=== PATIENT | female | born 1970 | race African-American/Black ===

== ENCOUNTER 2019-11-28 10:28 | Emergency (ER) | payer BC ==
--- NOTE | 2019-11-28 11:07 | ER Document Report ---
ED Medical Screen (RME) - General Chief Complaint: Cough Stated Complaint: COUGHING UP BLOOD Time Seen by Provider: 11/28/19 10:59 Mode of Arrival: Ambulatory Information source: Patient Notes: 49-year-old female presents to ED with complaint of coughing for the last week. She states that she woke up and coughed up more blood than usual. She states she been coughing up blood for about a week. She states the right side of her throat is sore eye 4-5. States she is scheduled for a biopsy of the thyroid on the . She states she has no energy but this is normal for her. She states she has a history of hypothyroid rheumatoid arthritis asthma vertigo. She has had carpal tunnel syndrome cholecystectomy bilateral tubal ligation back surgery tonsillectomy and lymph nodes removed from her right axilla. I have greeted and performed a rapid initial assessment of this patient. A comprehensive ED assessment and evaluation of the patient, analysis of test results and completion of medical decision making process will be conducted by an additional ED providers. Physical Exam - Vital signs Vitals: Temp Pulse Resp BP Pulse Ox 98.0 F 71 18 135/78 H 100 11/28/19 10:36 11/28/19 10:36 11/28/19 10:36 11/28/19 10:36 11/28/19 10:36 Course - Vital Signs Vital signs: Temp Pulse Resp BP Pulse Ox 98.0 F 71 18 135/78 H 100 11/28/19 10:36 11/28/19 10:36 11/28/19 10:36 11/28/19 10:36 11/28/19 10:36
--- NOTE | 2019-11-28 11:52 | RADIOLOGY REPORT (SQ) ---
EXAM DESCRIPTION: CHEST SINGLE VIEW IMAGES COMPLETED DATE/TIME: 11/28/2019 11:42 am REASON FOR STUDY: cough COMPARISON: None. EXAM PARAMETERS: NUMBER OF VIEWS: One view. TECHNIQUE: Single frontal radiographic view of the chest acquired. RADIATION DOSE: NA LIMITATIONS: None. FINDINGS: LUNGS AND PLEURA: No opacities, masses or pneumothorax. No pleural effusion. MEDIASTINUM AND HILAR STRUCTURES: No masses. Contour normal. HEART AND VASCULAR STRUCTURES: Heart normal in size. Normal vasculature. BONES: No acute findings. HARDWARE: Right axillary surgical clips. OTHER: No other significant finding. IMPRESSION: No focal airspace disease or other evidence of acute intrathoracic process. TECHNICAL DOCUMENTATION: JOB ID: [id number] 2010 [email or web address]- All Rights Reserved Reading location - IP/workstation name: [email or web address]
[2019-11-28 11:53] LABS: ABSOLUTE BASOPHILS # (AUTO) 0.1 10^3/uL (0.0-0.2); ABSOLUTE EOSINOPHILS # (AUTO) 0.5 10^3/uL (0.0-0.6); ABSOLUTE MONOCYTES (AUTO) 0.3 10^3/uL (0.1-1.4); ABSOLUTE NEUT (AUTO) 2.5 10^3/uL (1.7-8.2); EOSINOPHILS % (AUTO) 9.5 % (0-6); HEMATOCRIT 36.7 % (36.0-47.0); HEMOGLOBIN 12.9 g/dL (12.0-15.5); LYMPHOCYTES % (AUTO) 37.8 % (13-45); MEAN CORPUSCULAR VOLUME 92 fl (80-97); MONOCYTES % (AUTO) 5.3 % (3-13); PLATELET COUNT 363 10^3/uL (150-450); RED BLOOD COUNT 4.01 10^6/uL (3.72-5.28); RED CELL DISTRIBUTION WIDTH 13.5 % (11.5-14.0); SEGMENTED NEUTROPHILS % (AUTO) 46.4 % (42-78); TOTAL CELLS COUNTED % (AUTO) 100 %; WHITE BLOOD COUNT 5.4 10^3/uL (4.0-10.5)
[2019-11-28 12:12] LABS: ALBUMIN 3.9 g/dL (3.5-5.0); ALKALINE PHOSPHATASE 105 U/L (38-126); ANION GAP 9 (5-19); ASPARTATE AMINO TRANSFERASE 43 U/L (14-36); BILIRUBIN,DIRECT 0.2 mg/dL (0.0-0.4); BILIRUBIN,TOTAL 1.1 mg/dL (0.2-1.3); BLOOD UREA NITROGEN 12 mg/dL (7-20); CALCIUM 9.4 mg/dL (8.4-10.2); CARBON DIOXIDE 24 mmol/L (22-30); CHLORIDE 107 mmol/L (98-107); GLUCOSE 92 mg/dL (75-110); TOTAL PROTEIN 7.7 g/dL (6.3-8.2)
[2019-11-28 12:30] LABS: FREE T3 3.55 pg/mL (2.77-5.27); FREE T4 (FREE THYROXINE) 0.93 ng/dL (0.78-2.19)
[2019-11-28 12:42] LABS: APPEARANCE,URINE CLOUDY; BILIRUBIN,URINE NEGATIVE (NEGATIVE); COLOR,URINE YELLOW; GLUCOSE, URINE NEGATIVE (NEGATIVE); KETONES,URINE NEGATIVE (NEGATIVE); LEUKOCYTE ESTERASE,URINE TRACE (NEGATIVE); NITRITE,URINE NEGATIVE (NEGATIVE); PROTEIN,URINE 30 mg/dL (NEGATIVE); URINE SPECIFIC GRAVITY 1.013; UROBILINOGEN,URINE NEGATIVE mg/dL (<2.0)
[2019-11-28 12:43] LABS: THYROID STIMULATING HORMONE 5.28 uIU/mL (0.47-4.68)
--- NOTE | 2019-11-28 13:59 | ER Document Report ---
ED General - General Chief Complaint: Cough Stated Complaint: COUGHING UP BLOOD Time Seen by Provider: 11/28/19 10:59 Mode of Arrival: Ambulatory Information source: Patient - HPI Notes: Patient presents complaining of some right throat pain and coughing up blood this morning. She states she has a history of thyroid disease and is scheduled for a thyroid biopsy later this week. She states when she coughed up blood this morning she called her primary doctor who informed her to come to the hospital. She states that she only coughed up the blood in the morning and has been for about 1 week. She states that she also is having some right lateral neck pain mainly when she swallows. It is worse with swallowing better without swallowing. The pain stays in the right neck and has no significant radiation. It is a sharp and stabbing sensation. Is moderate in intensity. No cough or congestion. - Related Data Allergies/Adverse Reactions: codeine Allergy (Verified 11/28/19 11:08) ondansetron [From Zofran] Allergy (Verified 11/28/19 11:08) Home Medications: Synthroid Past Medical History - General Information source: Patient - Social History Smoking Status: Never Smoker Chew tobacco use (# tins/day): No Frequency of alcohol use: None Drug Abuse: None Family History: Reviewed & Not Pertinent Review of Systems - Review of Systems Constitutional: denies: Chills, Fever Cardiovascular: denies: Chest pain, Palpitations Respiratory: Hemoptysis. denies: Short of breath -: Yes All other systems reviewed and negative Physical Exam - Vital signs Vitals: Temp Pulse Resp BP Pulse Ox 98.0 F 71 18 135/78 H 100 11/28/19 10:36 11/28/19 10:36 11/28/19 10:36 11/28/19 10:36 11/28/19 10:36 Interpretation: Normal - General General appearance: Appears well, Alert - HEENT Head: Normocephalic, Atraumatic Eyes: Normal Pupils: PERRL Pharynx: Normal Neck: Other - Patient has a minimally tender area of swelling on the right lateral anterior neck consistent with possible enlarged thyroid. - Respiratory Respiratory status: No respiratory distress Chest status: Nontender Breath sounds: Normal Chest palpation: Normal - Cardiovascular Rhythm: Regular Heart sounds: Normal auscultation Murmur: No - Abdominal Inspection: Normal Distension: No distension Bowel sounds: Normal Tenderness: Nontender Organomegaly: No organomegaly - Back Back: Normal, Nontender - Extremities General upper extremity: Normal inspection, Nontender, Normal color, Normal ROM, Normal temperature General lower extremity: Normal inspection, Nontender, Normal color, Normal ROM, Normal temperature, Normal weight bearing. No: Anna's sign - Neurological Neuro grossly intact: Yes Cognition: Normal Orientation: AAOx4 [place] Coma Scale Eye Opening: Spontaneous Hany Coma Scale Verbal: Oriented [place] Coma Scale Motor: Obeys Commands [place] Coma Scale Total: 15 Speech: Normal Motor strength normal: LUE, RUE, LLE, RLE Sensory: Normal - Psychological Associated symptoms: Normal affect, Normal mood - Skin Skin Temperature: Warm Skin Moisture: Dry Skin Color: Normal Course - Re-evaluation Re-evalutation: 11/28/19 13:58 Patient comes in with a history of morning hemoptysis. Laboratories are stable. Exam is stable. Vital signs are unremarkable. Imaging shows nothing that wou ld explain the hemoptysis. I personally discussed the CT scans with the radiologist. He recommends further work-up of the thyroid as scheduled as he states the CT does not reveal any significant findings in regards to the thyroid. He does states that there is some area around the right pectoral m uscle that is concerning and that needs outpatient follow-up to rule out carcinoma. This was relayed to the patient and she was instructed to discuss this with her primary care physician and that a mammogram probably would not be adequate but that she would need possibly some type of tissue biopsy but ultimately to discuss it with her primary care doctor. - Vital Signs Vital signs: Temp Pulse Resp BP Pulse Ox 98.0 F 71 18 135/78 H 100 11/28/19 10:36 11/28/19 10:36 11/28/19 10:36 11/28/19 10:36 11/28/19 10:36 - Laboratory Result Diagrams: 11/28/19 11:20 11/28/19 11:20 Laboratory results interpreted by me: 11/28/19 11/28/19 11/28/19 11:20 11:20 11:20 Eos % (Auto) 9.5 H Est GFR ( Amer) 58 L Est GFR (MDRD) Non-Af 48 L AST 43 H TSH 5.28 H Urine Protein Urine Blood Ur Leukocyte Esterase 11/28/19 12:07 Eos % (Auto) Est GFR ( Amer) Est GFR (MDRD) Non-Af AST TSH Urine Protein 30 H Urine Blood LARGE H Ur Leukocyte Esterase TRACE H - Diagnostic Test Radiology reviewed: Image reviewed, Reports reviewed Discharge - Discharge Clinical Impression: Hemoptysis Condition: Stable Disposition: HOME, SELF-CARE Additional Instructions: Please discuss further work-up of your thyroid with your primary care physician as soon as possible. Please discuss further work-up of the abnormality seen on CAT scan concerning your right chest muscle, called your pectoralis, as soon as possible. A mammogram will probably not be a helpful study. You should discuss biopsy or some type of further imaging with your primary concerning this lesion. Forms: Return to Work
--- NOTE | 2019-11-28 14:00 | RADIOLOGY REPORT (SQ) ---
EXAM DESCRIPTION: CTA CHEST IMAGES COMPLETED DATE/TIME: 11/28/2019 1:38 pm REASON FOR STUDY: hemop COMPARISON: None. TECHNIQUE: CT scan of the chest performed using helical scanning technique with dynamic intravenous contrast injection. Images reviewed with lung, soft tissue and bone windows. Reconstructed coronal and sagittal MPR images reviewed. Additional 3 dimensional post-processing performed to develop Maximal Intensity Projection images ([place] P). All images stored on PACS. All CT scanners at this facility use dose modulation, iterative reconstruction, and/or weight based d osing when appropriate to reduce radiation dose to as low as reasonably achievable (ALARA). [facility]: Dose Right [facility]: CareDose [facility]: Dose Right [facility]: Teradose 4D [facility]: Thrupoint CONTRAST TYPE AND DOSE: Omnipaque 350 75 cc Contrast bolus optimized for the aorta. Nondiagnostic for the pulmonary arteries. RENAL FUNCTION: Creatinine 1.2 RADIATION DOSE: CT Rad equipment meets quality standard of care and radiation dose reduction techniq ues were employed. CTDIvol: 3.2 - 29.8 mGy. DLP: 2348 mGy-cm. . LIMITATIONS: None. FINDINGS: LUNGS AND PLEURA: No masses, infiltrates, or pneumothorax. No pleural effusions or pleura l calcifications. AORTA AND GREAT VESSELS: No aneurysm. No dissection. HEART: Cardiomegaly. No significant pericardial effusion. No significant coronary artery calcificati ons. PULMONARY ARTERIES: Evaluation for pulmonary artery is limited secondary to bolus timing. No evidenc e of a right heart strain. HILAR AND MEDIASTINAL STRUCTURES: No identified masses or abnormal nodes. HARDWARE: Right axillary surgical clips. UPPER ABDOMEN: No acute findings. Prior cholecystectomy. Left upper pole renal cyst. THYROID AND OTHER SOFT TISSUES: Right axillary surgical clips. There are enlarged subpectoral lymph nodes, largest measuring 1.9 cm in short axis (series 3, image 30). Heterogeneous thyroid, partially evaluated. BONES: No acute or significant finding. 3D MIPS: Confirm above findings. OTHER: No other significant finding. IMPRESSION: 1. Nondiagnostic exam for evaluation of pulmonary embolism secondary to contrast timing . No evidence of right heart strain. No other evidence of acute intrathoracic process. 2. Right axillary surgical clips with enlarged right subpectoral lymph nodes, largest measuring 1.9 cm in short axis. Findings suspicious for malignancy. Correlation with priors and further workup wa rranted. 3. Heterogeneous thyroid, partially evaluated. Ultrasound could be considered for further character ization if not previously performed. Findings discussed with Dr. Chowdhury At 1349 hours on 11/28/2019 COMMENT: Quality ID # 436: Final reports with documentation of one or more dose reduction techniques (e.g., Automated exposure control, adjustment of the mA and/or kV according to patient size, use of iterative reconstruction technique) TECHNICAL DOCUMENTATION: JOB ID: [id number] 2010 [employer]- All Rights Reserved Reading location - IP/workstation name: [email or web address]
--- NOTE | 2019-11-28 14:12 | RADIOLOGY REPORT (SQ) ---
EXAM DESCRIPTION: CT SOFT TISSUE NECK WITH IMAGES COMPLETED DATE/TIME: 11/28/2019 1:38 pm REASON FOR STUDY: neck mass COMPARISON: None. TECHNIQUE: Post IV contrasted scanning from skull base through lung apices with review of bone, soft tissue and lung windows. Reconstructed coronal and sagittal MPR images reviewed. All images stored on PACS. All CT scanners at this facility use dose modulation, iterative reconstruction, and/or weight based d osing when appropriate to reduce radiation dose to as low as reasonably achievable (ALARA). [facility]: Dose Right [facility]: CareDose [facility]: Dose Right [facility]: Teradose 4D [facility]: [employer] CONTRAST TYPE AND DOSE: contrast/concentration: Isovue 350.00 mmol/ml; Total Contrast Delivered: 74. 9 ml; Total Saline Delivered: 70.0 ml RENAL FUNCTION: BUN 12; creatinine 1.2 RADIATION DOSE: . LIMITATIONS: Body habitus and patient motion FINDINGS: SKULL BASE: Intact. MAJOR SALIVARY GLANDS: No solid or cystic masses. No inflammatory changes. LYMPHADENOPATHY: No adenopathy. MUCOSAL MASSES OR ASYMMETRY: No mucosal masses or asymmetry. LARYNX/CORDS: Not adequately evaluated due to patient motion artifact obscuring the structures. VASCULAR STRUCTURES: The major vessels are patent. LUNG APICES: Clear. BONES: Intact. Disc degenerative changes are seen at the C5/6 level. THYROID: Grossly normal. PARANASAL SINUSES: Clear. OTHER: No other significant finding. IMPRESSION: Limited exam. The larynx is not adequately evaluated due to patient motion artifact. N o discrete cervical mass. TECHNICAL DOCUMENTATION: JOB ID: [id number] Quality ID # [id number]: Final reports with documentation of one or more dose reduction techniques (e.g., Au tomated exposure control, adjustment of the mA and/or kV according to patient size, use of iterative reconstruction technique) 2010 [employer]- All Rights Reserved Reading location - IP/workstation name: [email or web address]
[2019-11-28 14:49] VITALS: BP 110/80
== END 2019-11-28 14:35 | disposition home or self-care (01) ==
LOC: ER 10:28
DX: R04.2 Hemoptysis (principal); R07.0 Pain in throat; R22.1 Localized swelling, mass and lump, neck; M54.2 Cervicalgia; E07.9 Disorder of thyroid, unspecified; Z79.899 Other long term (current) drug therapy; Z88.6 Allergy status to analgesic agent; Z88.5 Allergy status to narcotic agent; Z88.8 Allergy status to other drugs, medicaments and biological substances
CPT/HCPCS: 36415; 70491; 71045; 71275; 80053; 81001; 84439; 84443; 84481; 85025; 87070; 87880; 99285

== ENCOUNTER 2019-12-28 17:26 | Emergency (ER) | payer BC, OTHER ==
[2019-12-28] MEDS ORDERED: NORMAL SALINE 1000 ML 1,000 ML IV ONE (19:01)
[2019-12-28] MEDS ORDERED: DIPHENHYDRAMINE HCL 50 MG/ML VIAL IV ONE (19:02)
[2019-12-28] MEDS ORDERED: KETOROLAC TROMETHAMINE INJ/PF 30 MG/1 ML SDV IV ONE (19:02)
--- NOTE | 2019-12-28 19:04 | ER Document Report ---
ED Medical Screen (RME) - General Chief Complaint: Headache Stated Complaint: HEADACHE,EAR PAIN,DIZZINESS Time Seen by Provider: 12/28/19 18:54 Mode of Arrival: Wheelchair Information source: Patient Notes: 49-year-old female patient presenting to the emergency department severe intermittent headaches over the last few weeks. She states she has never had a history of headaches prior to this. She states today the headache became severe. No obvious neurological deficits noted on exam. I have greeted and performed a rapid initial assessment of this patient. A comprehensive ED assessment and evaluation of the patient, analysis of test results and completion of the medical decision making process will be conducted by additional ED providers. I have specifically instructed the patient or family members with the patient to immediately return to any nursing staff should anything change in the patient's condition or with their chief complaint. - Related Data Allergies/Adverse Reactions: codeine Allergy (Verified 12/28/19 18:54) ondansetron [From Zofran] Allergy (Verified 12/28/19 18:54) Physical Exam - Vital signs Vitals: Temp Pulse Resp BP Pulse Ox 98.1 F 78 20 117/63 95 12/28/19 17:33 12/28/19 17:33 12/28/19 17:33 12/28/19 17:33 12/28/19 17:33 Course - Vital Signs Vital signs: Temp Pulse Resp BP Pulse Ox 98.1 F 78 20 117/63 95 12/28/19 17:33 12/28/19 17:33 12/28/19 17:33 12/28/19 17:33 12/28/19 17:33
--- NOTE | 2019-12-28 19:32 | RADIOLOGY REPORT (SQ) ---
EXAM DESCRIPTION: CT HEAD WITHOUT IMAGES COMPLETED DATE/TIME: 12/28/2019 7:24 pm REASON FOR STUDY: headache, worst ever COMPARISON: None. TECHNIQUE: Axial images acquired through the brain without intravenous contrast. Images reviewed wi th bone, brain and subdural windows. Additional sagittal and coronal reconstructions were generated. Images stored on PACS. All CT scanners at this facility use dose modulation, iterative reconstruction, and/or weight based d osing when appropriate to reduce radiation dose to as low as reasonably achievable (ALARA). [facility]: Dose Right [facility]: CareDose [facility]: Dose Right [facility]: Teradose 4D [facility]: [employer] RADIATION DOSE: CT Rad equipment meets quality standard of care and radiation dose reduction techniq ues were employed. CTDIvol: 53.2 mGy. DLP: 964 mGy-cm. mGy. LIMITATIONS: None. FINDINGS: VENTRICLES: Normal size and contour. CEREBRUM: No masses. No hemorrhage. No midline shift. No evidence for acute infarction. Normal gra y/white matter differentiation. No areas of low density in the white matter. CEREBELLUM: No masses. No hemorrhage. No alteration of density. No evidence for acute infarction. EXTRAAXIAL SPACES: No fluid collections. No masses. ORBITS AND GLOBE: No intra- or extraconal masses. Normal contour of globe without masses. CALVARIUM: No fracture. PARANASAL SINUSES: No fluid or mucosal thickening. SOFT TISSUES: No mass or hematoma. OTHER: No other significant finding. IMPRESSION: NORMAL BRAIN CT WITHOUT CONTRAST. EVIDENCE OF ACUTE STROKE: NO. COMMENT: Quality ID # [id number]: Final reports with documentation of one or more dose reduction techniques (e.g., Automated exposure control, adjustment of the mA and/or kV according to patient size, use of iterative reconstruction technique) TECHNICAL DOCUMENTATION: JOB ID: [id number] 2010 [employer]- All Rights Reserved Reading location - IP/workstation name: [email or web address]
[2019-12-28 19:57] LABS: ABSOLUTE BASOPHILS # (AUTO) 0.1 10^3/uL (0.0-0.2); ABSOLUTE EOSINOPHILS # (AUTO) 0.5 10^3/uL (0.0-0.6); ABSOLUTE LYMPHOCYTES (AUTO) 2.8 10^3/uL (0.5-4.7); ABSOLUTE MONOCYTES (AUTO) 0.4 10^3/uL (0.1-1.4); ABSOLUTE NEUT (AUTO) 2.3 10^3/uL (1.7-8.2); BASOPHILS % (AUTO) 1.1 % (0-2); EOSINOPHILS % (AUTO) 7.5 % (0-6); HEMATOCRIT 36.3 % (36.0-47.0); HEMOGLOBIN 12.3 g/dL (12.0-15.5); LYMPHOCYTES % (AUTO) 46.4 % (13-45); MEAN CORPUSCULAR HEMOGLOBIN 31.3 pg (27.0-33.4); MEAN CORPUSCULAR VOLUME 92 fl (80-97); MONOCYTES % (AUTO) 6.8 % (3-13); PLATELET COUNT 408 10^3/uL (150-450); RED BLOOD COUNT 3.94 10^6/uL (3.72-5.28); RED CELL DISTRIBUTION WIDTH 13.1 % (11.5-14.0); SEGMENTED NEUTROPHILS % (AUTO) 38.2 % (42-78); TOTAL CELLS COUNTED % (AUTO) 100 %
[2019-12-28] MEDS ORDERED: PROCHLORPERAZINE EDISYLATE INJ 10 MG/2 ML VIAL IV ONE (21:26)
[2019-12-28 21:58] LABS: ALBUMIN 4.3 g/dL (3.5-5.0); ALKALINE PHOSPHATASE 98 U/L (38-126); ANION GAP 10 (5-19); ASPARTATE AMINO TRANSFERASE 39 U/L (14-36); BILIRUBIN,DIRECT 0.1 mg/dL (0.0-0.4); BLOOD UREA NITROGEN 14 mg/dL (7-20); CALCIUM 9.6 mg/dL (8.4-10.2); CARBON DIOXIDE 23 mmol/L (22-30); CHLORIDE 106 mmol/L (98-107); GLUCOSE 86 mg/dL (75-110); POTASSIUM 4.4 mmol/L (3.6-5.0); TOTAL PROTEIN 8.6 g/dL (6.3-8.2)
--- NOTE | 2019-12-28 23:07 | ER Document Report ---
ED Headache - General Chief Complaint: Headache >24 hrs old Stated Complaint: HEADACHE,EAR PAIN,DIZZINESS Time Seen by Provider: 12/28/19 18:54 Primary Care Provider: JUDAH ALLEN MD [Primary Care Provider] - Follow up as needed Mode of Arrival: Wheelchair Information source: Patient Notes: Emergency Provider: GREGORY CRAIG AAccount Number: [id number] Date: 11/28/19 13:56 Initialization Date: 11/28/19 13:56 ED General - General Chief Complaint: Cough Stated Complaint: COUGHING UP BLOOD Time Seen by Provider: 11/28/19 10:59 Mode of Arrival: Ambulatory Information source: Patient - HPI Notes: Patient presents complaining of some right throat pain and coughing up blood thi s morning. She states she has a history of thyroid disease and is scheduled for a thyroid biopsy later this week. She states when she coughed up blood this morning she called her primary doctor who informed her to come to the hospital. She states that she only coughed up the blood in the morning and has been for about 1 week. She states that she also is having some right lateral neck pain mainly when she swallows. It is worse with swallowing better without swallowing. The pain stays in the right neck and has no significant radiation. It is a sharp and stabbing sensation. Is moderate in intensity. No cough or congestion. 12/28/19 19:01 - Nursing Note by HERVE PLUMMER [facility] [id number] : 1970 Patient Age: 49 c/o headache. pt states complaint x 2 wk and worsened this AM with light sensitivity, +dizziness which worsens with activity, pt reports frontal CARVALHO with posterior upper neck and bilateral ear pain. pt advised she has seen PC for complaint. 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 She states she has never had a history of headaches prior to this. She states today the headache became severe. No obvious neurological deficits noted on exam. LEDA CAICEDO NOTES - Re-evaluation Re-evalutation: 12/28/19 22:03 Unfortunately patient has had no relief of her headache after administration of Benadryl and Toradol. We have started her IV fluids in the triage area and have also administered Compazine IV. Head CT was negative for any acute findings. Labs pending. - Vital Signs Vital signs: Temp Pulse Resp BP Pulse Ox 98.1 F 78 20 117/63 95 12/28/19 17:33 12/28/19 17:33 12/28/19 17:33 12/28/19 17:33 12/28/19 17:33 - Laboratory Result Diagrams: 12/28/19 19:30 12/28/19 21:31 Laboratory results interpreted by me: 12/28/19 12/28/19 19:30 21:31 Lymph % (Auto) 46.4 H Eos % (Auto) 7.5 H Seg Neutrophils % 38.2 L Creatinine 1.36 H Est GFR ( Amer) 50 L Est GFR (MDRD) Non-Af 41 L AST 39 H Total Protein 8.6 H Original Note: MY NOTES 49-year-old female arrives with chief complaint of diffuse headache patient has total protein of 8.6 with 7.5 eosinophils and 46 lymphocytes. Patient reports she has had diffuse headaches for least 2 weeks. Patient reports she takes oxycodone for back pain when it flares up. She has chronic back pain as well as chronic lymphedema of her legs with rheumatoid arthritis. Lymphedema has been p resent for more than 1 year in her lower extremities. Her rheumatoid arthritis was diagnosed x5 years ago but she has had fusiform fingers and joint pain for least 10 years. 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 Patient reports the biopsy that was taken was negative for any tumor growth. Her last carpal tunnel surgery was 2019 and her back surgery was 2014 her 's name is Usman. 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 Patient reports she usually does not have headaches. She denies any visual difficulties. She does have some mild photophobia. She also complains of pain to the occipital aspect of her head pointing to this area. She denies any dorsal neck pain. She denies any skin rashes she denies any pets that are sick and denies any travel and denies any COVID-19 exposure. TRAVEL OUTSIDE OF THE [place] IN LAST 30 DAYS: No - Related Data Allergies/Adverse Reactions: codeine Allergy (Verified 12/28/19 18:54) ondansetron [From Zofran] Allergy (Verified 12/28/19 18:54) Past Medical History - General Information source: Patient - Social History Smoking Status: Never Smoker Cigarette use (# per day): No Chew tobacco use (# tins/day): No Smoking Education Provided: No Frequency of alcohol use: None Drug Abuse: None Lives with: Family Family History: Reviewed & Not Pertinent Patient has suicidal ideation: No Patient has homicidal ideation: No Review of Systems - Review of Systems Constitutional: See HPI, Recent illness EENT: No symptoms reported Cardiovascular: No symptoms reported Respiratory: No symptoms reported Gastrointestinal: No symptoms reported Genitourinary: No symptoms reported Female Genitourinary: No symptoms reported Musculoskeletal: No symptoms reported Skin: No symptoms reported Hematologic/Lymphatic: No symptoms reported Neurological/Psychological: No symptoms reported Physical Exam - Vital signs Vitals: Temp Pulse Resp BP Pulse Ox 98.1 F 78 20 117/63 95 12/28/19 17:33 12/28/19 17:33 12/28/19 17:33 12/28/19 17:33 12/28/19 17:33 Interpretation: Normal - General General appearance: Appears well, Alert - HEENT Head: Normocephalic, Atraumatic Eyes: Normal Pupils: PERRL - Respiratory Respiratory status: No respiratory distress Chest status: Nontender Breath sounds: Normal Chest palpation: Normal - Cardiovascular Rhythm: Regular Heart sounds: Normal auscultation Murmur: No - Abdominal Inspection: Normal Distension: No distension Bowel sounds: Normal Tenderness: Nontender Organomegaly: No organomegaly - Back Back: Normal, Nontender - Extremities General upper extremity: Tender, Edema - Fusiform fingers from rheumatoid arthritis is not on any Enbrel or Remicade, Normal color, Normal ROM, Normal temperature General lower extremity: Tender, Edema, Normal color, Normal temperature, Normal weight bearing, Other - Lymphedema of legs bilaterally tender to palpation. No: Anna's sign - Neurological Neuro grossly intact: Yes Cognition: Normal Orientation: AAOx4 Hany Coma Scale Eye Opening: Spontaneous [place] Coma Scale Verbal: Oriented Hany Coma Scale Motor: Obeys Commands [place] Coma Scale Total: 15 Speech: Normal Motor strength normal: LUE, RUE, LLE, RLE Sensory: Normal - Psychological Associated symptoms: Normal affect, Normal mood - Skin Skin Temperature: Warm Skin Moisture: Dry Skin Color: Normal Course - Vital Signs Vital signs: Temp Pulse Resp BP Pulse Ox 98.0 F 72 17 131/83 H 94 12/28/19 22:49 12/28/19 22:49 12/28/19 22:49 12/28/19 22:49 12/28/19 22:49 - Laboratory Result Diagrams: 12/28/19 19:30 12/28/19 21:31 Laboratory results interpreted by me: 12/28/19 12/28/19 12/28/19 19:30 21:31 23:45 Lymph % (Auto) 46.4 H Eos % (Auto) 7.5 H Seg Neutrophils % 38.2 L Creatinine 1.36 H Est GFR ( Amer) 50 L Est GFR (MDRD) Non-Af 41 L AST 39 H Total Protein 8.6 H Urine Blood MODERATE H - Diagnostic Test Radiology reviewed: Reports reviewed Critical Care Note - Critical Care Note Comments: [place] negative strep test was negative; and Covid test pending Discharge - Discharge Clinical Impression: Elevated lymphocyte count Headache Qualifiers: Headache type: unspecified Headache chronicity pattern: acute headache Intractability: not intractable Qualified Code(s): R51.9 - Headache, unspecified Eosinophil count raised Qualifiers: Eosinophilia type: unspecified eosinophilia Qualified Code(s): D72.19 - Other eosinophilia Condition: Stable Disposition: HOME, SELF-CARE Instructions: COVID-19 Guidance for Persons Under Investigation Additional Instructions: Follow-up with personal doctor this week return to ER as needed take medicines as directed encourage fluids sleep in dark room if possible for 8 hours Referrals: JUDAH ALLEN MD [Primary Care Provider] - Follow up as needed
[2019-12-28] MEDS ORDERED: DEXAMETHASONE SOD PHOS INJ 10 MG/1 ML VIAL IV ONE (23:37)
[2019-12-28] MEDS ORDERED: HYDROMORPHONE HCL INJ/PF 2 MG/ML AMPULE IV ONE (23:37)
[2019-12-28] MEDS ORDERED: PROMETHAZINE HCL INJ 25 MG/1 ML VIAL IV ONE (23:38)
--- NOTE | 2019-12-28 23:51 | RADIOLOGY REPORT (SQ) ---
EXAM DESCRIPTION: Site: CHEST SINGLE VIEW RP: XR CHEST 1 VIEW CLINICAL HISTORY: 49 years Female; mcnair with eosinophils ; COMPARISON: 11/28/2019 FINDINGS: Lungs: Lungs are clear, with no focal infiltrate, pneumothorax, or pleural effusion. Mediastinum: Mediastinum is within normal limits for this positioning. Bones: Bony structures are unremarkable. Right maxillary surgical clips are noted. IMPRESSION: 1. No acute pulmonary findings.
[2019-12-29 00:24] LABS: APPEARANCE,URINE CLEAR; BILIRUBIN,URINE NEGATIVE (NEGATIVE); COLOR,URINE YELLOW; GLUCOSE, URINE NEGATIVE (NEGATIVE); KETONES,URINE NEGATIVE (NEGATIVE); LEUKOCYTE ESTERASE,URINE NEGATIVE (NEGATIVE); NITRITE,URINE NEGATIVE (NEGATIVE); PROTEIN,URINE NEGATIVE (NEGATIVE); URINE SPECIFIC GRAVITY 1.014; UROBILINOGEN,URINE NEGATIVE mg/dL (<2.0)
[2019-12-29 00:38] LABS: URINE AMPHETAMINES SCREEN NEGATIVE; URINE BARBITURATES SCREEN NEGATIVE; URINE BENZODIAZEPINES SCREEN NEGATIVE; URINE COCAINE SCREEN NEGATIVE; URINE MARIJUANA (THC) SCREEN NEGATIVE; URINE METHADONE SCREEN NEGATIVE; URINE PHENCYCLIDINE SCREEN NEGATIVE
[2019-12-29 02:05] VITALS: BP 100/62
== END 2019-12-29 01:58 | disposition home or self-care (01) ==
LOC: ER 17:26
DX: R51.9 Headache, unspecified (principal); R04.2 Hemoptysis; R07.0 Pain in throat; M54.2 Cervicalgia; H53.149 Visual discomfort, unspecified; D72.820 Lymphocytosis (symptomatic); R42 Dizziness and giddiness; H92.03 Otalgia, bilateral; E06.3 Autoimmune thyroiditis; I89.0 Lymphedema, not elsewhere classified; M06.9 Rheumatoid arthritis, unspecified; M54.9 Dorsalgia, unspecified; G89.29 Other chronic pain; Z88.6 Allergy status to analgesic agent; Z88.5 Allergy status to narcotic agent; Z88.8 Allergy status to other drugs, medicaments and biological substances; Z20.828 Contact with and (suspected) exposure to other viral communicable diseases
CPT/HCPCS: 99285; 96361; 96374; 96375; 36415; 87070; 87880; 85025; 86308; 80053; 81001; 84484; 80307; 71045; 70450; U0003; J1200; J1885; J1170; J0780; J2550; J7030; J1100; C9803; 87635

== ENCOUNTER 2020-01-26 22:26 | Emergency (ER) | payer BC, OTHER ==
[2020-01-27 02:02] LABS: ABSOLUTE BASOPHILS # (AUTO) 0.1 10^3/uL (0.0-0.2); ABSOLUTE EOSINOPHILS # (AUTO) 0.8 10^3/uL (0.0-0.6); ABSOLUTE LYMPHOCYTES (AUTO) 2.8 10^3/uL (0.5-4.7); ABSOLUTE MONOCYTES (AUTO) 0.6 10^3/uL (0.1-1.4); ABSOLUTE NEUT (AUTO) 2.6 10^3/uL (1.7-8.2); BASOPHILS % (AUTO) 1.4 % (0-2); HEMATOCRIT 34.7 % (36.0-47.0); HEMOGLOBIN 11.7 g/dL (12.0-15.5); LYMPHOCYTES % (AUTO) 41.1 % (13-45); MEAN CORPUSCULAR HEMOGLOBIN 31.3 pg (27.0-33.4); MEAN CORPUSCULAR HGB CONC 33.7 g/dL (32.0-36.0); MEAN CORPUSCULAR VOLUME 93 fl (80-97); MONOCYTES % (AUTO) 8.3 % (3-13); PLATELET COUNT 364 10^3/uL (150-450); RED BLOOD COUNT 3.74 10^6/uL (3.72-5.28); RED CELL DISTRIBUTION WIDTH 13.2 % (11.5-14.0); SEGMENTED NEUTROPHILS % (AUTO) 38.2 % (42-78); TOTAL CELLS COUNTED % (AUTO) 100 %; WHITE BLOOD COUNT 6.9 10^3/uL (4.0-10.5)
--- NOTE | 2020-01-27 02:05 | RADIOLOGY REPORT (SQ) ---
CHEST X-RAY 1 VIEW on 01/27/2020 at 1:39 AM CLINICAL INDICATION: Shortness of breath, cough COMPARISON: 12/28/2019 FINDINGS: There are minimal bilateral interstitial opacities worrisome for early atypical pneumonia and differential diagnosis would include viral infections. The lungs are otherwise clear. Cardiac, hilar and mediastinal contours are within normal limits. No bony abnormality is noted. IMPRESSION: Minimal bilateral interstitial opacities raising question of early atypical pneumonia. Differential diagnosis would include viral infection.
[2020-01-27] MEDS ORDERED: IPRATROPIUM/ALBUTEROL 0.5-2.5 MG/3 ML AMPUL NEB ONE (02:20)
[2020-01-27 02:29] LABS: ALBUMIN 4.1 g/dL (3.5-5.0); ALKALINE PHOSPHATASE 86 U/L (38-126); ANION GAP 7 (5-19); ASPARTATE AMINO TRANSFERASE 44 U/L (14-36); BILIRUBIN,DIRECT 0.4 mg/dL (0.0-0.4); BLOOD UREA NITROGEN 12 mg/dL (7-20); CARBON DIOXIDE 28 mmol/L (22-30); CHLORIDE 107 mmol/L (98-107); GLUCOSE 108 mg/dL (75-110); POTASSIUM 4.7 mmol/L (3.6-5.0)
[2020-01-27] MEDS ORDERED: AZITHROMYCIN 250 MG TABLET PO ONE (03:34)
[2020-01-27] MEDS ORDERED: DEXAMETHASONE 4 MG TABLET PO ONE (03:34)
[2020-01-27] MEDS ORDERED: BENZONATATE 100 MG CAPSULE PO ONE (03:34)
--- NOTE | 2020-01-27 03:45 | ER Document Report ---
ED Respiratory Problem - General Chief Complaint: Asthma Exacerbation Stated Complaint: POSSIBLE ASTHMA ATTACK Time Seen by Provider: 01/27/20 02:19 Primary Care Provider: JUDAH ALLEN MD [COMMUNITY BASED STAFF] - Follow up in 1 week Notes: Patient is a 49-year-old female who presents to the emergency department with a chief complaint of a cough and shortness of breath. Her symptoms started today. Patient reports that she has been cleaning out her mother's house and since she has been doing that, she has kicked up some dust and felt short of breath. She took a puff of her albuterol inhaler, but states that it was not enough to help with her shortness of breath. TRAVEL OUTSIDE OF THE [place] IN LAST 30 DAYS: No - Related Data Allergies/Adverse Reactions: codeine Allergy (Verified 12/28/19 18:54) ondansetron [From Zofran] Allergy (Verified 12/28/19 18:54) Past Medical History - Social History Smoking Status: Never Smoker Frequency of alcohol use: None Drug Abuse: None Family History: Reviewed & Not Pertinent Review of Systems - Review of Systems Notes: REVIEW OF SYSTEMS: CONSTITUTIONAL : Denies recent illness. Denies recent unintentional weight loss. Denies fever, chills, or sweats. EENT: Denies eye, ear, throat, or mouth pain, discharge, or symptoms. Denies nasal or sinus congestion. CARDIOVASCULAR: Denies chest pain. RESPIRATORY: See HPI. GASTROINTESTINAL: Denies nausea, vomiting, and diarrhea. Denies abdominal pain. Denies constipation. GENITOURINARY: Denies difficulty urinating, burning, blood in urine, urgency or frequency. MUSCULOSKELETAL: Denies neck and back pain. Denies joint pain or swelling. SKIN: Denies rash, itchiness, or lesions HEMATOLOGIC : Denies easy bruising or bleeding. LYMPHATIC: Denies swollen, painful, enlarged glands. NEUROLOGICAL: Denies no numbness or tingling denies weakness. Denies headache. Denies altered mental status. Denies alteration in speech. PSYCHIATRIC: Denies stress, anxiety, alteration in sleep patterns, or depression. All other systems reviewed and negative. Physical Exam - Vital signs Vitals: Temp Pulse Resp BP Pulse Ox 98.3 F 86 18 142/77 H 97 01/27/20 00:24 01/27/20 00:24 01/27/20 00:24 01/27/20 00:24 01/27/20 00:24 - Notes Notes: PHYSICAL EXAMINATION: GENERAL: Appears well, healthy, well-nourished, no acute distress. HEAD: Normocephalic, atraumatic. EYES: PERRL, conjunctiva normal, all extraocular movements intact, sclera nonicteric ENT: Moist mucous membranes. NECK: Supple, no noticeable swelling, redness, rash. Normal range of motion. LUNGS: Expiratory wheezes noted in all lung sim. CARDIOVASCULAR: S1-S2, regular rate, regular rhythm. Radial pulses 2+, normal. ABDOMEN: Normoactive bowel sounds. Soft, nontender, no guarding, no rebound tenderness, and no masses palpated. EXTREMITIES: Normal strength and range of motion, no pitting or edema. No cyanosis. NEUROLOGICAL: Moves all extremities upon command. Strength 5/5 in all extremities. PSYCH: Normal mood, normal affect. SKIN: Warm, dry. No rash, lesions, ulcerations noted. Normal skin turgor. Course - Re-evaluation Re-evalutation: 01/27/20 03:48 Patient's lung sounds have improved after receiving duo nebs. X-ray shows atyp ical pneumonia. We will start the patient on azithromycin. The patient was evaluated during the global COVID-19 pandemic and that diagnosis was suspected/considered upon their initial presentation. Their evaluation, treatment and testing was consistent with current guidelines for patients who present with complaints or symptoms that may be related to COVID-19. Patient is nontoxic in appearance. Follow-up precautions were given. Verbal discharge instructions were given to the patient. They verbalized understanding. They are stable for discharge. - Vital Signs Vital signs: Temp Pulse Resp BP Pulse Ox 98.2 F 89 16 126/65 H 99 01/27/20 04:01 01/27/20 04:01 01/27/20 04:01 01/27/20 04:01 01/27/20 04:01 - Laboratory Results Result Diagrams: 01/27/20 01:29 01/27/20 01:29 Laboratory Results Interpreted: 01/27/20 01/27/20 01:29 01:29 Hgb 11.7 L Hct 34.7 L Eos % (Auto) 11.0 H Absolute Eos (auto) 0.8 H Seg Neutrophils % 38.2 L Est GFR ( Amer) 59 L Est GFR (MDRD) Non-Af 49 L AST 44 H Critical Laboratory Results Reviewed: No Critical Results - Radiology Results Critical Radiology Results Reviewed: No Critical Results Discharge - Discharge Clinical Impression: Pneumonia Qualifiers: Pneumonia type: due to unspecified organism Laterality: bilateral Lung location: unspecified part of lung Qualified Code(s): J18.9 - Pneumonia, unspecified organism Condition: Stable Disposition: HOME, SELF-CARE Instructions: Azithromycin ([facility]) Additional Instructions: You were seen today in the emergency department for shortness of breath and a cough. You have pneumonia. Take your antibiotics as prescribed. Follow-up with your primary care provider in 1 week if your Covid test is negative. Use your albuterol inhaler. Take 1 to 2 puffs every 4-6 hours [id number] for the next 24 to 48 hours. As a person under investigation for COVID-19, the [place] Department of Health and Human Services (division on public health) advises you to adhere to the following guidance until your test results are reported to you. If your test result is positive, you will receive additional information from your provider and your local health department at that time. Remain at home until you are cleared by the health provider or public health authorities. Keep a log of visitors to your home, notify any visitors to your home of your isolation status. If you plan to move to a new address or leave the [facility], notify the local health department in your [facility]. Call your Doctor or seek care if you have an urgent medical need. Before seeking medical care, call him to get instructions from the provider before arriving at the medical office, clinic, or hospital. Notify them that you are being tested for the virus (COVID-19) so that arrangements can be made, as necessary, to prevent transmission to others in the healthcare setting. Next, notify the local health department in your [facility]. Prescriptions: Benzonatate [Tessalon Perles 100 mg Capsule] 100 mg PO Q8HP PRN #40 capsule PRN Reason: Azithromycin [Zithromax 250 mg Tablet] 250 mg PO DAILY #4 tablet Forms: Return to Work Referrals: JUDAH ALLEN MD [COMMUNITY BASED STAFF] - Follow up in 1 week
[2020-01-27 04:04] VITALS: BP 126/65
[2020-01-27 05:12] LABS: A TYPE INFLUENZA AG NEGATIVE (NEGATIVE); B INFLUENZA AG NEGATIVE (NEGATIVE)
--- NOTE | 2020-01-27 08:54 | EKG REPORT ---
SEVERITY:- ABNORMAL ECG - SINUS OR ECTOPIC ATRIAL RHYTHM PROBABLE LEFT ATRIAL ABNORMALITY BORDERLINE LEFT AXIS DEVIATION BORDERLINE T WAVE ABNORMALITIES : Confirmed by: Shanice Zaman MD 27-Jan-2020 08:54:29
== END 2020-01-27 04:04 | disposition home or self-care (01) ==
LOC: ER 22:26
DX: J18.9 Pneumonia, unspecified organism (principal); J45.909 Unspecified asthma, uncomplicated; Z20.828 Contact with and (suspected) exposure to other viral communicable diseases; R05 Cough; R06.02 Shortness of breath; Z79.899 Other long term (current) drug therapy; Z88.6 Allergy status to analgesic agent; Z88.5 Allergy status to narcotic agent; Z88.8 Allergy status to other drugs, medicaments and biological substances
CPT/HCPCS: 93005; 94640; 99285; 36415; 85025; 87635; 80053; 87804; 71045; 93010; J8540; C9803